=== PATIENT | female | born 1970 | race Caucasian/White ===

== ENCOUNTER 2020-07-12 04:05 | Emergency (ER) | payer BC, OTHER ==
[~2020-07-12] VITALS: Ht 170.2 cm; Wt 104.5 kg
[2020-07-12 04:42] LABS: BASOPHILS # (AUTO) 0.1 X10'3 (0-0.2); BASOPHILS % (AUTO) 0.8 % (0-1); EOSINOPHILS # (AUTO) 0.2 X10'3 (0-0.9); EOSINOPHILS % (AUTO) 1.8 % (0-6); HEMATOCRIT 29.4 % (35.0-45.0); HEMOGLOBIN 9.7 g/dl (12.0-16.0); LYMPHOCYTES # (AUTO) 1.7 X10'3 (1.1-4.8); LYMPHOCYTES % (AUTO) 12.4 % (21-51); MEAN CORPUSCULAR HEMOGLOBIN 31.3 PG (27.0-31.0); MEAN PLATELET VOLUME 7.1 FL (7.4-10.4); MONOCYTES # (AUTO) 0.9 X10'3 (0-0.9); MONOCYTES % (AUTO) 6.7 % (2-12); NEUTROPHILS # (AUTO) 10.8 X10'3 (1.8-7.7); NEUTROPHILS % (AUTO) 78.3 % (42-75); PLATELET COUNT 339 X10'3 (140-440); RED CELL DISTRIBUTION WIDTH 15.1 % (11.5-14.5); WHITE BLOOD COUNT 13.8 X10'3 (4.5-11.0)
[2020-07-12] MEDS ORDERED: ondansetron/PF 4mg/2ml inj IV ONE (04:45)
--- NOTE | 2020-07-12 04:45 | NUR ---
xray at bedside
[2020-07-12 05:26] LABS: D-DIMER 1.79 MG/L FEU (0-0.50)
[2020-07-12] MEDS ORDERED: iohexol 350MG/ML 100ml bottle IV ONE (05:46)
[2020-07-12 05:58] LABS: ALANINE AMINOTRANSFERASE 39 U/L (12-78); ALBUMIN 2.5 G/DL (3.4-5.0); ALBUMIN/GLOBULIN RATIO 0.6 (1.1-1.5); ALKALINE PHOSPHATASE 105 IU/L (46-116); ANION GAP 12 (8-16); ASPARTATE AMINO TRANSFERASE 21 U/L (10-37); BILIRUBIN,TOTAL 0.4 MG/DL (0.1-1.0); BLOOD UREA NITROGEN 42 MG/DL (7-18); BUN/CREATININE RATIO 23.7 (6.6-38.0); CALCIUM 8.3 MG/DL (8.5-10.1); CHLORIDE 104 MMOL/L (99-107); CREATININE 1.77 MG/DL (0.40-0.90); GLUCOSE 136 MG/DL (70-104); POTASSIUM 3.6 MMOL/L (3.5-5.1); SODIUM 139 MMOL/L (135-145); TOTAL CARBON DIOXIDE 23.1 MMOL/L (24-32); TOTAL PROTEIN 6.4 G/DL (6.4-8.2); eGFR 30 ML/MIN
[2020-07-12] MEDS ORDERED: normal saline 1000ml 1,000 ML IV SCH (06:45)
--- NOTE | 2020-07-12 07:25 | NUR ---
call ct scan to inform that pt iv fluid is finished .
--- NOTE | 2020-07-12 08:38 | NUR ---
pt seen by ed physician hortencia discussed the poc ,as per md check pt spo2 and respiration on ra ,pt sat 95 % on ra was 97 % on 1 l ,notified money counterjohnny vargas to gait test pt with portable spo2 monitor and will discuss the finding with ed physician tiffany.
--- NOTE | 2020-07-12 08:45 | NUR ---
notified dr allen about pt spo2 while ambulating in hallway highest was 92% and 90 %was the lowest on ra.
--- NOTE | 2020-07-12 08:47 | NUR ---
as per dr allen he feels comfortable to send pt home with spo2 of 92 while ambulating and 94% on ra sitting in bed.
--- NOTE | 2020-07-12 08:50 | NUR ---
spoke to mother ruslan to come brain picker pt as pt is getting discharge as per mother it will take 30 min ETA.
[2020-07-12 09:03] VITALS: BP 167/85
== END 2020-07-12 09:11 | disposition home or self-care (01) ==
LOC: ER 04:08
DX: J18.9 Pneumonia, unspecified organism (principal)
CPT/HCPCS: 36415; 71045; 71275; 80053; 83605; 83880; 84145; 85025; 85379; 87040; 93005; 96361; 96374; 99285; J2405; J7030; Q9967